=== PATIENT | female | born 1940 | race Caucasian/White ===

== ENCOUNTER 2018-09-03 13:10 | Inpatient (IN) ==
[2018-09-03] MEDS ORDERED: METOPROLOL TARTRATE 5 MG/5 ML VIAL IV ONE (13:15)
[2018-09-03] MEDS ORDERED: DILTIAZEM 50 MG/10 ML VIAL IV STA ×2 (13:22→14:57)
[2018-09-03] MEDS ORDERED: DILTIAZEM 25 MG/5 ML VIAL IV STA (13:23)
[2018-09-03] MEDS ORDERED: METOPROLOL TARTRATE 5 MG/5 ML VIAL IV STA (13:23)
[2018-09-03] MEDS: dilTIAZem Drip 125 MG/125 ML PREMIX IV SCH ×2 (14:03→22:41)
[2018-09-03 14:13] LABS: Basophils % 0.2 % (0.0-0.8); Eosinophils % 0.1 % (0.00-10.9); Hematocrit 31.7 VOL% (35.7-47.0); Hemoglobin 9.9 GM/DL (12.0-16.0); Immature Granulocytes % 0.3 %; Immature Granulocytes Absolute 0.03 #; Lymphocytes % 9.6 % (21.3-54.2); Mean Corpuscular HGB Conc 31.2 GM/DL (32-36); Mean Corpuscular Hemoglobin 27 PG (27-34); Mean Corpuscular Volume 87.6 FL (87-102); Mean Platelet Volume 9.4 FL (9.6-12.0); Monocytes # 1.1 10*3/uL (0.11-0.8); Monocytes % 10.8 % (1.7-12.7); Neutrophils # 8.1 10*3/uL (1.4-7.4); Platelet Count 360 T/CUMM (130-400); Red Blood Count 3.62 MC/CUMM (3.8-5.5); Red Cell Distribution Width 14.5 % (9.3-17.3); White Blood Count 10.3 T/CUMM (4-12)
[2018-09-03 14:29] LABS: Albumin 2.3 G/DL (3.4-5.0); Bilirubin,Total 0.5 MG/DL (0.2-1.0); Calcium 7.8 MG/DL (8.5-10.1); Osmolality,Calculated 268.4 MOS/KG (273-304); Potassium 2.8 MMOL/L (3.5-5.1); Thyroid Stimulating Hormone 0.385 uIU/ml (0.358-3.74); Total Protein 5.4 G/DL (6.4-8.3)
[2018-09-03 15:01] LABS: Apearance,Urine Slightly Hazy (Clear); Bacteria,Urine Occasional /HPF (Few); Bilirubin,Urine Negative (Negative); Blood, Urine Small mg/dL (Negative); Glucose,Urine (UA) Negative (Negative); Hyaline Casts,Urine 1 /LPF (0-3); Ketones,Urine Negative (Negative); Mucus,Urine Occasional /LPF (Occasional); Nitrite,Urine Negative (Negative); Protein,Urine 30 MG/DL; RBC,Urine 7 /HPF (0-4); Squamous Epithelial Cell,Urine Occasional /HPF (0-10); Urine Color Yellow (Yellow); Urine Specific Gravity 1.017 (1.001-1.035); Urine Urobilinogen < 2.0 EU/DL (0.2-1.0); WBC,Urine 3 /HPF (0-6)
[2018-09-03 15:18] LABS: Barbiturates Screen,Urine Negative (Negative); Benzodiazepines Screen,Urine Negative (Negative); Cannabinoid Screen,Urine Negative (Negative); Opiate Screen,Urine Negative (Negative); Phencyclidine Screen,Urine Negative (Negative)
[2018-09-03] MEDS ORDERED: ONDANSETRON 4 MG/2 ML VIAL IV PRN (16:39)
[2018-09-03] MEDS ORDERED: ENOXAPARIN 40 MG/0.4 ML SYRINGE SUBCUT SCH (17:00)
[2018-09-03] MEDS ORDERED: ACETAMINOPHEN 325 MG TABLET PO PRN (17:23)
[2018-09-03] MEDS: buPROPion SR 100 MG TABLET PO SCH (22:34)
[2018-09-03] MEDS: DILTIAZEM 60 MG TABLET PO SCH (22:35)
[2018-09-03] MEDS: rOPINIRole 1 MG TABLET PO SCH (22:35)
[2018-09-03] MEDS: APIXABAN 5 MG TABLET PO SCH (22:36)
[2018-09-03] MEDS: DONEPEZIL 5 MG TABLET PO SCH (22:36)
[2018-09-03] MEDS: traMADol 50 MG TABLET PO PRN (22:36)
[2018-09-03] MEDS: carBAMazepine 200 MG TABLET PO SCH (22:36)
[2018-09-03] MEDS: busPIRone 15 MG TABLET PO SCH (22:36)
[2018-09-03] MEDS: LORazepam 1 MG TABLET PO PRN (22:36)
[2018-09-03] MEDS: ACETAMINOPHEN 325 MG TABLET PO PRN (22:40)
[2018-09-04] MEDS: dilTIAZem Drip 125 MG/125 ML PREMIX IV SCH ×2 (05:11→12:32)
[2018-09-04 06:10] LABS: Calcium 8.3 MG/DL (8.5-10.1); Osmolality,Calculated 272.1 MOS/KG (273-304)
[2018-09-04 06:28] LABS: Potassium 2.5 MMOL/L (3.5-5.1)
[2018-09-04] MEDS: LEVOTHYROXINE 100 MCG TABLET PO SCH (06:41)
[2018-09-04] MEDS: POTASSIUM CHLORIDE 20 MEQ TABLET PO PRN ×5 (06:44→21:21)
[2018-09-04] MEDS: ACETAMINOPHEN 325 MG TABLET PO PRN ×3 (06:59→21:22)
[2018-09-04] MEDS: traMADol 50 MG TABLET PO PRN ×3 (07:00→21:18)
[2018-09-04] MEDS ORDERED: POTASSIUM CHLORIDE 20 MEQ TABLET PO ONE (07:19)
[2018-09-04 07:53] LABS: Basophils % 0.5 % (0.0-0.8); Eosinophils % 0.4 % (0.00-10.9); Hematocrit 27.6 VOL% (35.7-47.0); Hemoglobin 8.7 GM/DL (12.0-16.0); Immature Granulocytes % 0.4 %; Immature Granulocytes Absolute 0.03 #; Lymphocytes # 1.5 10*3/uL (1.4-4.0); Lymphocytes % 18.6 % (21.3-54.2); Mean Corpuscular HGB Conc 31.5 GM/DL (32-36); Mean Corpuscular Hemoglobin 28 PG (27-34); Mean Platelet Volume 9.8 FL (9.6-12.0); Monocytes # 0.8 10*3/uL (0.11-0.8); Monocytes % 10.4 % (1.7-12.7); Neutrophils # 5.5 10*3/uL (1.4-7.4); Neutrophils % 69.7 % (38.7-73.9); Platelet Count 315 T/CUMM (130-400); Red Cell Distribution Width 14.5 % (9.3-17.3); White Blood Count 7.9 T/CUMM (4-12)
[2018-09-04] MEDS: buPROPion SR 100 MG TABLET PO SCH ×2 (09:40→21:21)
[2018-09-04] MEDS: carBAMazepine 200 MG TABLET PO SCH ×3 (09:40→21:18)
[2018-09-04] MEDS: PANTOPRAZOLE 40 MG TABLET PO SCH (09:41)
[2018-09-04] MEDS: DILTIAZEM 60 MG TABLET PO SCH ×4 (09:41→21:20)
[2018-09-04] MEDS: APIXABAN 5 MG TABLET PO SCH ×2 (09:41→21:21)
[2018-09-04] MEDS: CETIRIZINE 10 MG TABLET PO SCH (09:41)
[2018-09-04] MEDS: busPIRone 15 MG TABLET PO SCH ×3 (09:43→21:21)
[2018-09-04] MEDS: ESTRADIOL 2 MG TABLET PO SCH (09:47)
[2018-09-04 15:42] LABS: Calcium 8.4 MG/DL (8.5-10.1); Potassium 3.2 MMOL/L (3.5-5.1)
[2018-09-04] MEDS: rOPINIRole 1 MG TABLET PO SCH (21:18)
[2018-09-04] MEDS: LORazepam 1 MG TABLET PO PRN (21:19)
[2018-09-04] MEDS: DONEPEZIL 5 MG TABLET PO SCH (21:22)
[2018-09-05] MEDS: POTASSIUM CHLORIDE 20 MEQ TABLET PO PRN (00:24)
[2018-09-05 05:07] LABS: Basophils % 0.7 % (0.0-0.8); Eosinophils # 0.1 10*3/uL (0.0-0.87); Eosinophils % 1.7 % (0.00-10.9); Hematocrit 25.8 VOL% (35.7-47.0); Hemoglobin 7.9 GM/DL (12.0-16.0); Immature Granulocytes % 0.3 %; Immature Granulocytes Absolute 0.02 #; Lymphocytes # 1.1 10*3/uL (1.4-4.0); Lymphocytes % 18.6 % (21.3-54.2); Mean Corpuscular HGB Conc 30.6 GM/DL (32-36); Mean Corpuscular Hemoglobin 28 PG (27-34); Mean Corpuscular Volume 90.2 FL (87-102); Mean Platelet Volume 9.3 FL (9.6-12.0); Monocytes # 0.4 10*3/uL (0.11-0.8); Monocytes % 6.6 % (1.7-12.7); Neutrophils # 4.4 10*3/uL (1.4-7.4); Neutrophils % 72.1 % (38.7-73.9); Platelet Count 280 T/CUMM (130-400); Red Blood Count 2.86 MC/CUMM (3.8-5.5); Red Cell Distribution Width 14.6 % (9.3-17.3); White Blood Count 6.1 T/CUMM (4-12)
[2018-09-05 05:33] LABS: Calcium 8.5 MG/DL (8.5-10.1); Osmolality,Calculated 277.8 MOS/KG (273-304); Potassium 4.9 MMOL/L (3.5-5.1)
[2018-09-05] MEDS: LEVOTHYROXINE 100 MCG TABLET PO SCH (06:42)
[2018-09-05] MEDS: DILTIAZEM 60 MG TABLET PO SCH (08:31)
[2018-09-05] MEDS: carBAMazepine 200 MG TABLET PO SCH ×3 (08:31→21:01)
[2018-09-05] MEDS: CETIRIZINE 10 MG TABLET PO SCH (08:32)
[2018-09-05] MEDS: buPROPion SR 100 MG TABLET PO SCH ×2 (08:32→21:00)
[2018-09-05] MEDS: APIXABAN 5 MG TABLET PO SCH ×2 (08:32→21:01)
[2018-09-05] MEDS: busPIRone 15 MG TABLET PO SCH ×3 (08:32→21:01)
[2018-09-05] MEDS: ESTRADIOL 2 MG TABLET PO SCH (08:33)
[2018-09-05] MEDS: PANTOPRAZOLE 40 MG TABLET PO SCH (08:33)
[2018-09-05] MEDS ORDERED: SODIUM CHLORIDE 0.9% 1,000 ML IV PRN ×2 (12:12→12:18)
[2018-09-05] MEDS: NYSTATIN 500,000 UNIT/5 ML UDCUP SWISH/SWAL SCH ×2 (16:28→21:00)
[2018-09-05 18:03] LABS: Hemoglobin 9.2 GM/DL (12.0-16.0)
[2018-09-05] MEDS ORDERED: clonazePAM 0.5 MG TABLET PO SCH (21:00)
[2018-09-05] MEDS: rOPINIRole 1 MG TABLET PO SCH (21:01)
[2018-09-05] MEDS: METOPROLOL TARTRATE 25 MG TABLET PO SCH (21:01)
[2018-09-05] MEDS: LORazepam 1 MG TABLET PO PRN (21:01)
[2018-09-05] MEDS: DILTIAZEM CD 120 MG CAPSULE PO SCH (21:02)
[2018-09-05] MEDS: DONEPEZIL 5 MG TABLET PO SCH (21:02)
[2018-09-06] MEDS: LEVOTHYROXINE 100 MCG TABLET PO SCH (06:39)
[2018-09-06] MEDS: carBAMazepine 200 MG TABLET PO SCH ×2 (09:40→16:33)
[2018-09-06] MEDS: APIXABAN 5 MG TABLET PO SCH (09:40)
[2018-09-06] MEDS: METOPROLOL TARTRATE 25 MG TABLET PO SCH (09:40)
[2018-09-06] MEDS: DILTIAZEM CD 120 MG CAPSULE PO SCH (09:40)
[2018-09-06] MEDS: ESTRADIOL 2 MG TABLET PO SCH (09:41)
[2018-09-06] MEDS: busPIRone 15 MG TABLET PO SCH ×2 (09:41→16:31)
[2018-09-06] MEDS: buPROPion SR 100 MG TABLET PO SCH (09:41)
[2018-09-06] MEDS: CETIRIZINE 10 MG TABLET PO SCH (09:41)
[2018-09-06] MEDS: PANTOPRAZOLE 40 MG TABLET PO SCH (09:41)
[2018-09-06] MEDS: NYSTATIN 500,000 UNIT/5 ML UDCUP SWISH/SWAL SCH ×3 (09:41→16:33)
[2018-09-06 12:44] VITALS: BP 117/58
== END 2018-09-06 16:10 | DRG 310 ==
LOC: N.EDINP 13:10 → N.ED 13:10 → SUATTDRO 17:06 → N.TELES 17:18
PROVIDERS: ADMIT Internal Medicine; ATTEND Internal Medicine

== ENCOUNTER 2020-11-26 11:13 | Inpatient (IN) ==
[2020-11-26 11:55] LABS: INR 2.6; PT Patient Result 26.8 SECS (9.8-11.9); Partial Thromboplastin Time 28.9 SECS (23.9-33.8)
[2020-11-26 11:56] LABS: Basophils % 0.1 % (0.0-0.8); Hematocrit 41.7 VOL% (35.7-47.0); Hemoglobin 13.1 GM/DL (12.0-16.0); Immature Granulocytes % 1.1 %; Immature Granulocytes Absolute 0.17 #; Lymphocytes # 0.7 10*3/uL (1.4-4.0); Lymphocytes % 4.7 % (21.3-54.2); Mean Corpuscular HGB Conc 31.4 GM/DL (32-36); Mean Corpuscular Volume 95.2 FL (87-102); Mean Platelet Volume 13.3 FL (9.6-12.0); Monocytes % 7.3 % (1.7-12.7); NRBC # 0.18 10*3/uL; Neutrophils % 86.8 % (38.7-73.9); Platelet Count 105 T/CUMM (130-400); Red Blood Count 4.38 MC/CUMM (3.8-5.5); Red Cell Distribution Width 15.6 % (9.3-17.3); White Blood Count 15.7 T/CUMM (4-12)
[2020-11-26] MEDS ORDERED: DILTIAZEM 50 MG/10 ML VIAL IV STA (11:58)
[2020-11-26] MEDS ORDERED: SODIUM CHLORIDE 0.9% 1,000 ML IV STA (12:03)
[2020-11-26 12:06] LABS: Albumin 3.3 G/DL (3.4-5.0); Bilirubin,Total 6.2 MG/DL (0.2-1.0); Calcium 8.7 MG/DL (8.5-10.1); Osmolality,Calculated 329.6 MOS/KG (273-304); Potassium 5.1 MMOL/L (3.5-5.1); Total Protein 5.6 G/DL (6.4-8.3)
[2020-11-26 12:08] LABS: Lymphocytes 4 % (20-55); Nucleated Red Blood Cells 4 (0-5); Segmented Neutrophils 90 % (50-85); Total Cells Counted 100
[2020-11-26 12:09] LABS: Hypochromasia Slight; Microcytosis 1+; Polychromasia Slight
[2020-11-26 12:10] LABS: Platelet Estimate Decreased
[2020-11-26] MEDS ORDERED: DILTIAZEM 100 MG VIAL.ADD IV ONE (12:40)
[2020-11-26 12:51] LABS: Bilirubin,Urine Negative (Negative); Blood, Urine Negative (Negative); Glucose,Urine (UA) Negative (Negative); Hyaline Casts,Urine 12 /LPF (0-3); Ketones,Urine Negative (Negative); Mucus,Urine Occasional /LPF (Occasional); Nitrite,Urine Negative (Negative); Protein,Urine 30 MG/DL; Squamous Epithelial Cell,Urine Occasional /HPF (0-10); Urine Appearance CLEAR (Clear); Urine Color Amber (Yellow); Urine Specific Gravity 1.017 (1.001-1.035); Urine Urobilinogen < 2.0 EU/DL (0.2-1.0); WBC,Urine 2 /HPF (0-6)
[2020-11-26] MEDS: DILTIAZEM INJ 100 MG in SODIUM CHLORIDE 0.9% 100 ML IV SCH (12:53)
[2020-11-26] MEDS ORDERED: ONDANSETRON 4 MG/2 ML VIAL ONE (13:02)
[2020-11-26] MEDS ORDERED: ONDANSETRON 4 MG/2 ML VIAL IV STA (13:07)
[2020-11-26] MEDS ORDERED: DEXTROSE 50% 25 GM/50 ML VIAL IV PRN (14:18)
[2020-11-26] MEDS ORDERED: ALBUTEROL 2.5 MG/3 ML NEB RESP TX PRN (14:18)
[2020-11-26] MEDS ORDERED: GLUCAGON 1 MG VIAL IM PRN (14:18)
[2020-11-26] MEDS ORDERED: ONDANSETRON 4 MG/2 ML VIAL IV PRN (14:18)
[2020-11-26] MEDS ORDERED: AZITHROMYCIN INJ 500 MG in SODIUM CHLORIDE 0.9% 250 ML IV SCH (14:30)
[2020-11-26] MEDS ORDERED: SODIUM CHLORIDE 0.9% 1,000 ML IV SCH (14:30)
[2020-11-26] MEDS ORDERED: SODIUM CHLORIDE 0.9% 1,000 ML IV ONE (14:39)
[2020-11-26] MEDS: SODIUM CHLORIDE 0.45% 1,000 ML IV SCH ×2 (14:58→18:52)
[2020-11-26 15:34] LABS: Barbiturates Screen,Urine Negative (Negative); Benzodiazepines Screen,Urine Negative (Negative); Cannabinoid Screen,Urine Negative (Negative); Opiate Screen,Urine Negative (Negative); Phencyclidine Screen,Urine Negative (Negative)
[2020-11-26] MEDS ORDERED: LACTATED RINGERS 500 ML IV ONE (17:09)
[2020-11-26] MEDS ORDERED: NOREPINEPHRINE 4 MG/4 ML VIAL IV ONE (17:16)
[2020-11-26 17:23] LABS: Hepatitis B Core IgM Quant 0.13 Index; Hepatitis B Surface Ag Quant < 0.10 Index; Hepatitis B Surface Ag Result Non-Reactive (NonReactive); Hepatitis C Virus Ab Quant 0.08 Index; Hepatitis C Virus Ab Result Non-Reactive (NonReactive)
[2020-11-26] MEDS ORDERED: MIDAZOLAM 100 MG in SODIUM CHLORIDE 0.9% 80 ML IV PRN (17:30)
[2020-11-26 17:50] LABS: ABG Base Excess -15.7 MMOL/L (-2.5-2.5); ABG HCO3 12.6 MMOL/L (20-26); ABG Oxygen Saturation 99.5 % (95-100); ABG TCO2 11.5 MMOL/L (23-27)
[2020-11-26 17:52] LABS: ABG PH 7.157 (7.35-7.45)
[2020-11-26] MEDS: NOREPINEPHRINE 8 MG in SODIUM CHLORIDE 0.9% 242 ML IV PRN (18:00)
[2020-11-26] MEDS ORDERED: ETOMIDATE 20 MG/10 ML VIAL IV ONE (18:04)
[2020-11-26] MEDS ORDERED: ROCURONIUM 100 MG/10 ML VIAL IV ONE (18:04)
[2020-11-26] MEDS ORDERED: SODIUM BICARBONATE 50 MEQ/50 ML VIAL IV ONE ×2 (18:09)
[2020-11-26] MEDS ORDERED: INFLUENZA VIRUS VACCINE 0.5 ML SYRINGE IM ONE (18:27)
[2020-11-26] MEDS: GABAPENTIN 100 MG CAPSULE PO SCH (18:33)
[2020-11-26] MEDS: MEMANTINE 5 MG TABLET PO SCH (18:33)
[2020-11-26] MEDS: LEVOFLOXACIN INJ 500 MG in PREMIX 1 EACH IV SCH (18:33)
[2020-11-26] MEDS ORDERED: LACTATED RINGERS 1,000 ML IV ONE (19:16)
[2020-11-26 19:59] LABS: Basophils % 0.1 % (0.0-0.8); Hemoglobin 11.8 GM/DL (12.0-16.0); Immature Granulocytes % 1.2 %; Immature Granulocytes Absolute 0.18 #; Lymphocytes # 0.6 10*3/uL (1.4-4.0); Lymphocytes % 4.2 % (21.3-54.2); Mean Corpuscular HGB Conc 30.3 GM/DL (32-36); Mean Corpuscular Volume 99.7 FL (87-102); Mean Platelet Volume 12.3 FL (9.6-12.0); Monocytes % 4.7 % (1.7-12.7); NRBC # 0.23 10*3/uL; Neutrophils % 89.8 % (38.7-73.9); Platelet Count 75 T/CUMM (130-400); Red Blood Count 3.91 MC/CUMM (3.8-5.5); Red Cell Distribution Width 15.4 % (9.3-17.3); White Blood Count 15.1 T/CUMM (4-12)
[2020-11-26 20:15] LABS: Bilirubin,Total 7.1 MG/DL (0.2-1.0); Calcium 7.5 MG/DL (8.5-10.1); Potassium 4.8 MMOL/L (3.5-5.1); Total Protein 5.5 G/DL (6.4-8.3)
[2020-11-26 20:23] LABS: Band Neutrophils 1 % (0-10); Lymphocytes 4 % (20-55); Nucleated Red Blood Cells 7 (0-5); Segmented Neutrophils 93 % (50-85); Total Cells Counted 100
[2020-11-26 20:24] LABS: Anisocytosis Slight; Burr Cells Few; Macrocytosis Slight; Platelet Estimate Decreased; Polychromasia 1+
[2020-11-26] MEDS: SODIUM BICARB INJ 100 MEQ in DEXTROSE 5% 1,000 ML IV SCH (20:39)
[2020-11-27] MEDS: DILTIAZEM INJ 100 MG in SODIUM CHLORIDE 0.9% 100 ML IV SCH (01:04)
[2020-11-27 04:25] LABS: Basophils % 0.1 % (0.0-0.8); Hematocrit 37.3 VOL% (35.7-47.0); Hemoglobin 11.6 GM/DL (12.0-16.0); Immature Granulocytes % 0.4 %; Immature Granulocytes Absolute 0.07 #; Lymphocytes # 0.8 10*3/uL (1.4-4.0); Lymphocytes % 4.8 % (21.3-54.2); Mean Corpuscular HGB Conc 31.1 GM/DL (32-36); Mean Corpuscular Volume 98.4 FL (87-102); Mean Platelet Volume 12.6 FL (9.6-12.0); NRBC # 0.22 10*3/uL; Neutrophils % 90.7 % (38.7-73.9); Red Blood Count 3.79 MC/CUMM (3.8-5.5); Red Cell Distribution Width 15.6 % (9.3-17.3)
[2020-11-27 04:32] LABS: Platelet Count 66 T/CUMM (130-400)
[2020-11-27 04:47] LABS: ABG Base Excess 1.9 MMOL/L (-2.5-2.5); ABG HCO3 26.1 MMOL/L (20-26); ABG PCO2 32.3 MM HG (35-48); ABG PH 7.492 (7.35-7.45)
[2020-11-27 04:49] LABS: Albumin 2.8 G/DL (3.4-5.0); Bilirubin,Total 7.4 MG/DL (0.2-1.0); Calcium 7.4 MG/DL (8.5-10.1); Osmolality,Calculated 327.8 MOS/KG (273-304); Potassium 4.2 MMOL/L (3.5-5.1)
[2020-11-27 04:55] LABS: Band Neutrophils 2 % (0-10); Lymphocytes 5 % (20-55); Nucleated Red Blood Cells 3 (0-5); Segmented Neutrophils 92 % (50-85); Total Cells Counted 100
[2020-11-27 04:56] LABS: Hypochromasia 1+; Microcytosis 1+; Ovalocytes Slight; Polychromasia Slight
[2020-11-27 04:57] LABS: Platelet Estimate Decreased
[2020-11-27] MEDS: SODIUM BICARB INJ 100 MEQ in DEXTROSE 5% 1,000 ML IV SCH ×3 (05:22→22:21)
[2020-11-27] MEDS: LEVOTHYROXINE 100 MCG TABLET PO SCH (08:07)
[2020-11-27] MEDS: MEMANTINE 5 MG TABLET PO SCH ×2 (08:07→17:15)
[2020-11-27] MEDS: GABAPENTIN 100 MG CAPSULE PO SCH ×2 (08:07→17:15)
[2020-11-27] MEDS: METOPROLOL TARTRATE 25 MG TABLET PER TUBE SCH ×2 (08:08→21:18)
[2020-11-27] MEDS ORDERED: LACTATED RINGERS 1,000 ML IV ONE (09:46)
[2020-11-28] MEDS: NOREPINEPHRINE 8 MG in SODIUM CHLORIDE 0.9% 242 ML IV PRN ×2 (03:35→20:26)
[2020-11-28 06:31] LABS: Basophils % 0.1 % (0.0-0.8); Hemoglobin 10.9 GM/DL (12.0-16.0); Immature Granulocytes % 0.5 %; Immature Granulocytes Absolute 0.07 #; Lymphocytes # 0.6 10*3/uL (1.4-4.0); Lymphocytes % 4.3 % (21.3-54.2); Mean Corpuscular Volume 91.9 FL (87-102); Mean Platelet Volume 12.5 FL (9.6-12.0); NRBC # 0.05 10*3/uL; Neutrophils % 91.1 % (38.7-73.9); Platelet Count 56 T/CUMM (130-400); Red Blood Count 3.59 MC/CUMM (3.8-5.5); Red Cell Distribution Width 15.3 % (9.3-17.3); White Blood Count 13.9 T/CUMM (4-12)
[2020-11-28 06:37] LABS: ABG Base Excess 8.5 MMOL/L (-2.5-2.5); ABG HCO3 32.3 MMOL/L (20-26); ABG Oxygen Saturation 99.2 % (95-100); ABG PCO2 31.9 MM HG (35-48); ABG PH 7.589 (7.35-7.45); ABG TCO2 27.1 MMOL/L (23-27)
[2020-11-28 06:38] LABS: INR 1.9
[2020-11-28 07:08] LABS: Hypochromasia 1+; Lymphocytes 2 % (20-55); Microcytosis 1+; Ovalocytes Slight; Platelet Estimate Decreased; Segmented Neutrophils 96 % (50-85); Total Cells Counted 100
[2020-11-28 07:17] LABS: Albumin 2.1 G/DL (3.4-5.0); Bilirubin,Total 7.9 MG/DL (0.2-1.0); Osmolality,Calculated 316.5 MOS/KG (273-304); Potassium 3.2 MMOL/L (3.5-5.1); Total Protein 4.2 G/DL (6.4-8.3)
[2020-11-28] MEDS ORDERED: HEPARIN/NACL 0.9% 2 UNITS/ML 500 ML IV ONE (07:22)
[2020-11-28] MEDS: SODIUM BICARB INJ 100 MEQ in DEXTROSE 5% 1,000 ML IV SCH ×3 (07:30→16:47)
[2020-11-28] MEDS ORDERED: POTASSIUM CHLORIDE 20 MEQ/15 ML UDCUP PER TUBE ONE (08:12)
[2020-11-28] MEDS: METOPROLOL TARTRATE 25 MG TABLET PER TUBE SCH (08:55)
[2020-11-28] MEDS: LEVOTHYROXINE 100 MCG TABLET PO SCH (08:55)
[2020-11-28] MEDS: MEMANTINE 5 MG TABLET PO SCH ×2 (08:55→18:30)
[2020-11-28] MEDS: GABAPENTIN 100 MG CAPSULE PO SCH ×2 (09:02→18:44)
[2020-11-28] MEDS ORDERED: DIGOXIN 0.5 MG/2 ML AMP IV ONE ×2 (10:00→10:10)
[2020-11-28] MEDS: HYDROCORTISONE 100 MG VIAL IV SCH ×2 (12:51→18:33)
[2020-11-28 14:21] LABS: Protein/Creatinine Ratio,Urine 1.1 RATIO
[2020-11-28] MEDS: LEVOFLOXACIN INJ 500 MG in PREMIX 1 EACH IV SCH (18:33)
[2020-11-29] MEDS: SODIUM BICARB INJ 100 MEQ in DEXTROSE 5% 1,000 ML IV SCH (00:29)
[2020-11-29] MEDS: HYDROCORTISONE 100 MG VIAL IV SCH ×3 (02:10→17:58)
[2020-11-29 04:37] LABS: ABG Base Excess 11.4 MMOL/L (-2.5-2.5); ABG HCO3 35.3 MMOL/L (20-26); ABG TCO2 28.8 MMOL/L (23-27)
[2020-11-29 04:38] LABS: ABG PH 7.645 (7.35-7.45)
[2020-11-29 04:55] LABS: Albumin 1.8 G/DL (3.4-5.0); Bilirubin,Total 9.7 MG/DL (0.2-1.0); Calcium 6.6 MG/DL (8.5-10.1); Osmolality,Calculated 315.4 MOS/KG (273-304); Potassium 3.6 MMOL/L (3.5-5.1); Total Protein 4.3 G/DL (6.4-8.3)
[2020-11-29 04:59] LABS: INR 1.5; PT Patient Result 16.1 SECS (9.8-11.9); Partial Thromboplastin Time 38.4 SECS (23.9-33.8)
[2020-11-29] MEDS ORDERED: SODIUM CHLORIDE 0.9% 1,000 ML IV SCH (05:00)
[2020-11-29] MEDS ORDERED: SODIUM CHLORIDE 0.45% 1,000 ML IV SCH (05:00)
[2020-11-29 05:01] LABS: Basophils % 0.1 % (0.0-0.8); Hematocrit 35.3 VOL% (35.7-47.0); Hemoglobin 11.5 GM/DL (12.0-16.0); Immature Granulocytes % 0.5 %; Immature Granulocytes Absolute 0.09 #; Lymphocytes # 0.3 10*3/uL (1.4-4.0); Lymphocytes % 1.7 % (21.3-54.2); Mean Corpuscular HGB Conc 32.6 GM/DL (32-36); Mean Corpuscular Volume 91.7 FL (87-102); Mean Platelet Volume 12.2 FL (9.6-12.0); Monocytes % 4.7 % (1.7-12.7); NRBC # 0.02 10*3/uL; Red Blood Count 3.85 MC/CUMM (3.8-5.5); Red Cell Distribution Width 15.6 % (9.3-17.3); White Blood Count 17.6 T/CUMM (4-12)
[2020-11-29 05:02] LABS: Platelet Count 55 T/CUMM (130-400)
[2020-11-29 05:26] LABS: Lymphocytes 1 % (20-55); Microcytosis 1+; Nucleated Red Blood Cells 1 (0-5); Promyelocytes 1 %; Segmented Neutrophils 96 % (50-85); Target Cells Slight; Total Cells Counted 100
[2020-11-29 05:27] LABS: Hypochromasia 2+; Platelet Estimate Decreased; Polychromasia Slight
[2020-11-29] MEDS ORDERED: LACTATED RINGERS 1,000 ML IV SCH (09:00)
[2020-11-29] MEDS ORDERED: POTASSIUM PHOSPHATE 30 MMOL in SODIUM CHLORIDE 0.9% 250 ML IV ONE (09:00)
[2020-11-29] MEDS ORDERED: AZITHROMYCIN INJ 500 MG in SODIUM CHLORIDE 0.9% 250 ML IV ONE (10:00)
[2020-11-29] MEDS: GABAPENTIN 100 MG CAPSULE PO SCH ×2 (10:17→17:58)
[2020-11-29] MEDS: LEVOTHYROXINE 100 MCG TABLET PO SCH (10:17)
[2020-11-29] MEDS: APIXABAN 5 MG TABLET PER TUBE SCH ×2 (10:17→20:10)
[2020-11-29] MEDS: MEMANTINE 5 MG TABLET PO SCH ×2 (10:17→17:58)
[2020-11-29] MEDS: DIGOXIN 0.5 MG/2 ML AMP IV SCH ×2 (10:18→15:48)
[2020-11-29] MEDS: cefTRIAXone 1,000 MG in SYRINGE 1 EACH IV SCH (10:20)
[2020-11-29] MEDS: SODIUM CHLORIDE 0.9% 1,000 ML IV SCH ×2 (18:00→23:58)
[2020-11-30] MEDS: HYDROCORTISONE 100 MG VIAL IV SCH ×3 (01:21→18:15)
[2020-11-30] MEDS: SODIUM CHLORIDE 0.9% 1,000 ML IV SCH ×4 (04:29→18:32)
[2020-11-30 04:32] LABS: ABG HCO3 30.8 MMOL/L (20-26); ABG Oxygen Saturation 99.6 % (95-100); ABG PCO2 40.3 MM HG (35-48); ABG PH 7.492 (7.35-7.45); ABG TCO2 27.2 MMOL/L (23-27)
[2020-11-30 04:40] LABS: Basophils % 0.1 % (0.0-0.8); Hemoglobin 11.9 GM/DL (12.0-16.0); Immature Granulocytes % 0.6 %; Immature Granulocytes Absolute 0.12 #; Lymphocytes # 0.3 10*3/uL (1.4-4.0); Lymphocytes % 1.4 % (21.3-54.2); Mean Corpuscular HGB Conc 33.1 GM/DL (32-36); Mean Corpuscular Volume 90.2 FL (87-102); Mean Platelet Volume 13.1 FL (9.6-12.0); Neutrophils % 91.9 % (38.7-73.9); Red Blood Count 3.99 MC/CUMM (3.8-5.5); Red Cell Distribution Width 15.6 % (9.3-17.3)
[2020-11-30 04:54] LABS: Albumin 1.6 G/DL (3.4-5.0); Bilirubin,Total 11.2 MG/DL (0.2-1.0); Calcium 6.8 MG/DL (8.5-10.1); Osmolality,Calculated 313.4 MOS/KG (273-304); Total Protein 4.2 G/DL (6.4-8.3)
[2020-11-30 04:57] LABS: Calcium 6.5 MG/DL (8.5-10.1); Osmolality,Calculated 316.1 MOS/KG (273-304); Potassium 4.1 MMOL/L (3.5-5.1)
[2020-11-30 05:19] LABS: Platelet Count 73 T/CUMM (130-400)
[2020-11-30 06:46] LABS: Band Neutrophils 1 % (0-10); Lymphocytes 2 % (20-55); Nucleated Red Blood Cells 1 (0-5); Segmented Neutrophils 95 % (50-85); Total Cells Counted 100
[2020-11-30 06:47] LABS: Hypochromasia 1+; Microcytosis 1+; Polychromasia Slight; Target Cells Slight
[2020-11-30 06:48] LABS: Platelet Estimate Decreased
[2020-11-30] MEDS ORDERED: MAGNESIUM SULF RIDER 4 GM in PREMIX 1 EACH IV PRN (06:56)
[2020-11-30] MEDS ORDERED: MAGNESIUM SULF RIDER 2 GM in PREMIX 1 EACH IV PRN (06:56)
[2020-11-30] MEDS: cefTRIAXone 1,000 MG in SYRINGE 1 EACH IV SCH (09:48)
[2020-11-30] MEDS: LEVOTHYROXINE 100 MCG TABLET PO SCH (09:49)
[2020-11-30] MEDS: FAMOTIDINE 20 MG/2 ML VIAL IV SCH (09:49)
[2020-11-30] MEDS: MEMANTINE 5 MG TABLET PO SCH ×2 (09:49→18:15)
[2020-11-30] MEDS: GABAPENTIN 100 MG CAPSULE PO SCH ×2 (09:50→18:15)
[2020-11-30] MEDS: APIXABAN 5 MG TABLET PER TUBE SCH ×2 (09:50→22:31)
[2020-11-30] MEDS: AZITHROMYCIN INJ 250 MG in SODIUM CHLORIDE 0.9% 250 ML IV SCH (10:02)
[2020-11-30 11:12] LABS: Bilirubin,Direct 9.03 MG/DL (0.0-0.20); Bilirubin,Indirect 1.6 MG/DL (0.0-1.0); Bilirubin,Total 10.6 MG/DL (0.2-1.0)
[2020-12-01] MEDS: HYDROCORTISONE 100 MG VIAL IV SCH ×3 (02:13→17:08)
[2020-12-01 04:39] LABS: Basophils % 0.1 % (0.0-0.8); Hemoglobin 11.1 GM/DL (12.0-16.0); Immature Granulocytes % 0.4 %; Immature Granulocytes Absolute 0.07 #; Lymphocytes # 0.2 10*3/uL (1.4-4.0); Lymphocytes % 1.5 % (21.3-54.2); Mean Corpuscular HGB Conc 32.6 GM/DL (32-36); Mean Corpuscular Volume 92.1 FL (87-102); Mean Platelet Volume 12.6 FL (9.6-12.0); Monocytes % 4.9 % (1.7-12.7); Neutrophils % 93.1 % (38.7-73.9); Red Blood Count 3.69 MC/CUMM (3.8-5.5); Red Cell Distribution Width 15.5 % (9.3-17.3); White Blood Count 15.8 T/CUMM (4-12)
[2020-12-01 04:40] LABS: Platelet Count 96 T/CUMM (130-400)
[2020-12-01 04:41] LABS: ABG Base Excess 4.8 MMOL/L (-2.5-2.5); ABG HCO3 28.8 MMOL/L (20-26); ABG Oxygen Saturation 99.6 % (95-100); ABG PCO2 39.1 MM HG (35-48); ABG PH 7.473 (7.35-7.45); ABG TCO2 25.6 MMOL/L (23-27)
[2020-12-01 04:48] LABS: Calcium 6.7 MG/DL (8.5-10.1); Osmolality,Calculated 316.3 MOS/KG (273-304); Potassium 3.8 MMOL/L (3.5-5.1)
[2020-12-01 05:28] LABS: Lymphocytes 2 % (20-55); Segmented Neutrophils 95 % (50-85); Total Cells Counted 100
[2020-12-01 05:29] LABS: Hypochromasia 3+; Platelet Estimate Decreased
[2020-12-01 05:30] LABS: Polychromasia Few; Target Cells Few
[2020-12-01] MEDS: SODIUM CHLORIDE 0.9% 1,000 ML IV SCH ×2 (05:51→07:39)
[2020-12-01 08:42] LABS: Albumin 1.6 G/DL (3.4-5.0); Bilirubin,Direct 9.91 MG/DL (0.0-0.20); Bilirubin,Indirect 2.4 MG/DL (0.0-1.0); Total Protein 4.4 G/DL (6.4-8.3)
[2020-12-01 08:51] LABS: Bilirubin,Total 12.3 MG/DL (0.2-1.0)
[2020-12-01] MEDS: LEVOTHYROXINE 100 MCG TABLET PO SCH (09:00)
[2020-12-01] MEDS: MEMANTINE 5 MG TABLET PO SCH ×2 (09:00→17:08)
[2020-12-01] MEDS: GABAPENTIN 100 MG CAPSULE PO SCH ×2 (09:01→17:08)
[2020-12-01] MEDS: FAMOTIDINE 20 MG/2 ML VIAL IV SCH (09:01)
[2020-12-01] MEDS: cefTRIAXone 1,000 MG in SYRINGE 1 EACH IV SCH (09:01)
[2020-12-01] MEDS: APIXABAN 5 MG TABLET PER TUBE SCH ×2 (09:01→21:41)
[2020-12-01] MEDS: AZITHROMYCIN INJ 250 MG in SODIUM CHLORIDE 0.9% 250 ML IV SCH (10:22)
[2020-12-01] MEDS ORDERED: MORPHINE 4 MG/1 ML VIAL IV PRN (10:26)
[2020-12-01] MEDS ORDERED: MORPHINE 4 MG/1 ML VIAL ONE (10:28)
[2020-12-02] MEDS: HYDROCORTISONE 100 MG VIAL IV SCH ×3 (03:21→17:50)
[2020-12-02 04:37] LABS: Basophils % 0.1 % (0.0-0.8); Hematocrit 33.4 VOL% (35.7-47.0); Immature Granulocytes % 0.4 %; Immature Granulocytes Absolute 0.07 #; Lymphocytes # 0.2 10*3/uL (1.4-4.0); Lymphocytes % 1.4 % (21.3-54.2); Mean Corpuscular HGB Conc 32.9 GM/DL (32-36); Mean Corpuscular Volume 90.3 FL (87-102); Mean Platelet Volume 12.5 FL (9.6-12.0); Monocytes % 4.4 % (1.7-12.7); Neutrophils % 93.7 % (38.7-73.9); Platelet Count 110 T/CUMM (130-400); Red Cell Distribution Width 15.5 % (9.3-17.3); White Blood Count 15.9 T/CUMM (4-12)
[2020-12-02 04:44] LABS: ABG Base Excess 3.9 MMOL/L (-2.5-2.5); ABG Oxygen Saturation 99.8 % (95-100); ABG PCO2 37.7 MM HG (35-48); ABG PH 7.473 (7.35-7.45); ABG TCO2 24.7 MMOL/L (23-27)
[2020-12-02 05:04] LABS: Calcium 7.3 MG/DL (8.5-10.1); Osmolality,Calculated 323.8 MOS/KG (273-304); Potassium 3.8 MMOL/L (3.5-5.1)
[2020-12-02 05:32] LABS: Albumin 1.5 G/DL (3.4-5.0); Bilirubin,Direct 10.29 MG/DL (0.0-0.20); Total Protein 4.3 G/DL (6.4-8.3)
[2020-12-02 05:35] LABS: Bilirubin,Indirect 1.9 MG/DL (0.0-1.0); Bilirubin,Total 12.2 MG/DL (0.2-1.0)
[2020-12-02 06:38] LABS: Hypochromasia 2+; Lymphocytes 2 % (20-55); Segmented Neutrophils 95 % (50-85); Total Cells Counted 100
[2020-12-02] MEDS: MEMANTINE 5 MG TABLET PO SCH ×2 (08:34→17:50)
[2020-12-02] MEDS: LEVOTHYROXINE 100 MCG TABLET PO SCH (08:34)
[2020-12-02] MEDS: cefTRIAXone 1,000 MG in SYRINGE 1 EACH IV SCH (08:35)
[2020-12-02] MEDS: GABAPENTIN 100 MG CAPSULE PO SCH ×2 (08:35→17:50)
[2020-12-02] MEDS: APIXABAN 5 MG TABLET PER TUBE SCH ×2 (08:35→21:36)
[2020-12-02] MEDS: FAMOTIDINE 20 MG/2 ML VIAL IV SCH (08:35)
[2020-12-02] MEDS: AZITHROMYCIN INJ 250 MG in SODIUM CHLORIDE 0.9% 250 ML IV SCH (09:06)
[2020-12-02] MEDS: ALBUMIN 25% 12.5 GM in PREMIX 1 EACH IV SCH ×2 (09:30→17:58)
[2020-12-02] MEDS ORDERED: HYDROCORTISONE 100 MG VIAL IV SCH (12:35)
[2020-12-03] MEDS: ALBUMIN 25% 12.5 GM in PREMIX 1 EACH IV SCH (02:09)
[2020-12-03] MEDS: HYDROCORTISONE 100 MG VIAL IV SCH ×3 (02:10→18:06)
[2020-12-03 05:19] LABS: ABG Base Excess 4.7 MMOL/L (-2.5-2.5); ABG HCO3 28.6 MMOL/L (20-26); ABG Oxygen Saturation 99.7 % (95-100); ABG PCO2 37.3 MM HG (35-48); ABG PH 7.487 (7.35-7.45); ABG TCO2 25.8 MMOL/L (23-27)
[2020-12-03 05:28] LABS: Basophils % 0.1 % (0.0-0.8); Hematocrit 27.4 VOL% (35.7-47.0); Hemoglobin 9.2 GM/DL (12.0-16.0); Immature Granulocytes % 1.5 %; Lymphocytes # 0.2 10*3/uL (1.4-4.0); Lymphocytes % 1.5 % (21.3-54.2); Mean Corpuscular HGB Conc 33.6 GM/DL (32-36); Mean Corpuscular Volume 88.1 FL (87-102); Mean Platelet Volume 12.3 FL (9.6-12.0); Monocytes % 3.3 % (1.7-12.7); Neutrophils % 93.6 % (38.7-73.9); Platelet Count 119 T/CUMM (130-400); Red Blood Count 3.11 MC/CUMM (3.8-5.5); Red Cell Distribution Width 15.4 % (9.3-17.3); White Blood Count 13.7 T/CUMM (4-12)
[2020-12-03 05:47] LABS: Bilirubin,Direct 10.31 MG/DL (0.0-0.20); Bilirubin,Indirect 2.6 MG/DL (0.0-1.0); Total Protein 4.3 G/DL (6.4-8.3)
[2020-12-03 05:55] LABS: Lymphocytes 2 % (20-55); Segmented Neutrophils 97 % (50-85); Total Cells Counted 100
[2020-12-03 05:56] LABS: Hypochromasia Slight; Microcytosis 1+; Target Cells Few
[2020-12-03 05:58] LABS: Ovalocytes Slight; Platelet Estimate Adequate
[2020-12-03 06:07] LABS: Bilirubin,Total 12.9 MG/DL (0.2-1.0)
[2020-12-03] MEDS: APIXABAN 5 MG TABLET PER TUBE SCH ×2 (08:24→21:53)
[2020-12-03] MEDS: LEVOTHYROXINE 100 MCG TABLET PO SCH (08:24)
[2020-12-03] MEDS: GABAPENTIN 100 MG CAPSULE PO SCH ×2 (08:24→16:34)
[2020-12-03] MEDS: MEMANTINE 5 MG TABLET PO SCH ×2 (08:24→16:34)
[2020-12-03] MEDS: FAMOTIDINE 20 MG/2 ML VIAL IV SCH (08:24)
[2020-12-03] MEDS: cefTRIAXone 1,000 MG in SYRINGE 1 EACH IV SCH (08:30)
[2020-12-03] MEDS ORDERED: DIGOXIN 0.5 MG/2 ML AMP IV SCH (09:00)
[2020-12-03] MEDS: AZITHROMYCIN INJ 250 MG in SODIUM CHLORIDE 0.9% 250 ML IV SCH (09:23)
[2020-12-03 09:53] LABS: Calcium 7.6 MG/DL (8.5-10.1); Potassium 3.6 MMOL/L (3.5-5.1)
[2020-12-03] MEDS ORDERED: carvediloL 3.125 MG TABLET PO SCH (21:00)
[2020-12-04] MEDS: HYDROCORTISONE 100 MG VIAL IV SCH ×3 (02:44→21:51)
[2020-12-04 05:18] LABS: ABG HCO3 28.9 MMOL/L (20-26); ABG Oxygen Saturation 99.4 % (95-100); ABG PCO2 37.9 MM HG (35-48); ABG PH 7.486 (7.35-7.45); ABG TCO2 25.7 MMOL/L (23-27)
[2020-12-04 05:27] LABS: Basophils % 0.1 % (0.0-0.8); Hematocrit 31.4 VOL% (35.7-47.0); Hemoglobin 10.3 GM/DL (12.0-16.0); Immature Granulocytes % 1.8 %; Lymphocytes # 0.3 10*3/uL (1.4-4.0); Lymphocytes % 1.5 % (21.3-54.2); Mean Corpuscular HGB Conc 32.8 GM/DL (32-36); Mean Corpuscular Volume 89.2 FL (87-102); Mean Platelet Volume 12.4 FL (9.6-12.0); Neutrophils % 93.6 % (38.7-73.9); Platelet Count 149 T/CUMM (130-400); Red Blood Count 3.52 MC/CUMM (3.8-5.5); Red Cell Distribution Width 15.9 % (9.3-17.3); White Blood Count 16.9 T/CUMM (4-12)
[2020-12-04 05:52] LABS: Hypochromasia Slight; Lymphocytes 2 % (20-55); Platelet Estimate Adequate; Segmented Neutrophils 93 % (50-85); Total Cells Counted 100
[2020-12-04 05:53] LABS: Microcytosis Slight
[2020-12-04 05:58] LABS: Albumin 1.8 G/DL (3.4-5.0); Bilirubin,Direct 9.29 MG/DL (0.0-0.20); Bilirubin,Indirect 2.3 MG/DL (0.0-1.0); Bilirubin,Total 11.6 MG/DL (0.2-1.0); Total Protein 4.5 G/DL (6.4-8.3)
[2020-12-04] MEDS ORDERED: hydrALAZINE 20 MG/1 ML VIAL IV PRN (08:14)
[2020-12-04] MEDS: FAMOTIDINE 20 MG/2 ML VIAL IV SCH (08:24)
[2020-12-04] MEDS: LEVOTHYROXINE 100 MCG TABLET PO SCH (08:25)
[2020-12-04] MEDS: APIXABAN 5 MG TABLET PER TUBE SCH ×2 (08:25→21:50)
[2020-12-04] MEDS: MEMANTINE 5 MG TABLET PO SCH ×2 (08:25→16:58)
[2020-12-04] MEDS: GABAPENTIN 100 MG CAPSULE PO SCH ×2 (08:25→16:58)
[2020-12-04] MEDS: carvediloL 6.25 MG TABLET PO SCH ×2 (08:32→21:50)
[2020-12-04] MEDS: cefTRIAXone 1,000 MG in SYRINGE 1 EACH IV SCH (08:43)
[2020-12-04] MEDS ORDERED: DIGOXIN 0.125 MG TABLET PO SCH (13:00)
[2020-12-05 04:07] LABS: ABG Base Excess 5.5 MMOL/L (-2.5-2.5); ABG HCO3 29.8 MMOL/L (20-26); ABG PCO2 42.4 MM HG (35-48); ABG PH 7.464 (7.35-7.45); ABG PO2 108.2 MM HG (80-95); ABG TCO2 31.1 MMOL/L (23-27)
[2020-12-05 04:08] LABS: Basophils % 0.2 % (0.0-0.8); Hematocrit 31.5 VOL% (35.7-47.0); Hemoglobin 10.1 GM/DL (12.0-16.0); Immature Granulocytes % 2.7 %; Immature Granulocytes Absolute 0.57 #; Lymphocytes # 0.3 10*3/uL (1.4-4.0); Lymphocytes % 1.6 % (21.3-54.2); Mean Corpuscular HGB Conc 32.1 GM/DL (32-36); Mean Platelet Volume 12.3 FL (9.6-12.0); Monocytes % 3.3 % (1.7-12.7); Neutrophils % 92.2 % (38.7-73.9); Platelet Count 154 T/CUMM (130-400); Red Cell Distribution Width 15.9 % (9.3-17.3); White Blood Count 21.3 T/CUMM (4-12)
[2020-12-05 04:26] LABS: Albumin 1.8 G/DL (3.4-5.0); Bilirubin,Total 8.5 MG/DL (0.2-1.0); Calcium 7.8 MG/DL (8.5-10.1); Osmolality,Calculated 331.4 MOS/KG (273-304); Potassium 3.6 MMOL/L (3.5-5.1); Total Protein 4.6 G/DL (6.4-8.3)
[2020-12-05 04:32] LABS: Hypochromasia 2+; Lymphocytes 1 % (20-55); Segmented Neutrophils 91 % (50-85); Total Cells Counted 100
[2020-12-05 04:33] LABS: Microcytosis 1+; Target Cells Few
[2020-12-05 04:35] LABS: Ovalocytes Few
[2020-12-05 04:36] LABS: Platelet Estimate Adequate
[2020-12-05] MEDS: MEMANTINE 5 MG TABLET PO SCH ×2 (08:03→17:09)
[2020-12-05] MEDS: carvediloL 12.5 MG TABLET PO SCH ×2 (08:03→22:32)
[2020-12-05] MEDS: APIXABAN 5 MG TABLET PER TUBE SCH ×2 (08:03→22:32)
[2020-12-05] MEDS: LEVOTHYROXINE 100 MCG TABLET PO SCH (08:03)
[2020-12-05] MEDS: GABAPENTIN 100 MG CAPSULE PO SCH ×2 (08:03→17:09)
[2020-12-05] MEDS: FAMOTIDINE 20 MG/2 ML VIAL IV SCH (08:04)
[2020-12-05] MEDS: HYDROCORTISONE 100 MG VIAL IV SCH (08:04)
[2020-12-05] MEDS: cefTRIAXone 1,000 MG in SYRINGE 1 EACH IV SCH (08:30)
[2020-12-06 05:56] LABS: Basophils % 0.1 % (0.0-0.8); Hematocrit 31.5 VOL% (35.7-47.0); Immature Granulocytes % 1.5 %; Lymphocytes # 0.5 10*3/uL (1.4-4.0); Lymphocytes % 2.4 % (21.3-54.2); Mean Corpuscular HGB Conc 31.7 GM/DL (32-36); Mean Corpuscular Volume 89.5 FL (87-102); Mean Platelet Volume 12.4 FL (9.6-12.0); Platelet Count 159 T/CUMM (130-400); Red Blood Count 3.52 MC/CUMM (3.8-5.5); Red Cell Distribution Width 16.5 % (9.3-17.3); White Blood Count 19.4 T/CUMM (4-12)
[2020-12-06 06:22] LABS: Albumin 1.8 G/DL (3.4-5.0); Bilirubin,Total 5.5 MG/DL (0.2-1.0); Calcium 8.2 MG/DL (8.5-10.1); Osmolality,Calculated 333.1 MOS/KG (273-304); Potassium 3.4 MMOL/L (3.5-5.1); Total Protein 4.8 G/DL (6.4-8.9)
[2020-12-06 06:54] LABS: Band Neutrophils 1 % (0-10); Lymphocytes 4 % (20-55); Macrocytosis 1+; Metamyelocytes 1 %; Myelocytes 1 %; Nucleated Red Blood Cells 1 (0-5); Platelet Estimate Normal; Segmented Neutrophils 92 % (50-85); Target Cells Few; Total Cells Counted 100
[2020-12-06 06:55] LABS: Anisocytosis 2+; Ovalocytes Few
[2020-12-06] MEDS: GABAPENTIN 100 MG CAPSULE PO SCH ×2 (08:45→17:39)
[2020-12-06] MEDS: MEMANTINE 5 MG TABLET PO SCH ×2 (08:45→17:38)
[2020-12-06] MEDS: LEVOTHYROXINE 100 MCG TABLET PO SCH (08:45)
[2020-12-06] MEDS: carvediloL 12.5 MG TABLET PO SCH (08:46)
[2020-12-06] MEDS: APIXABAN 5 MG TABLET PER TUBE SCH (08:46)
[2020-12-06] MEDS: FAMOTIDINE 20 MG/2 ML VIAL IV SCH (08:46)
[2020-12-06] MEDS: cefTRIAXone 1,000 MG in SYRINGE 1 EACH IV SCH (08:48)
[2020-12-06] MEDS ORDERED: POTASSIUM CHLORIDE 20 MEQ/15 ML UDCUP PO ONE (09:00)
[2020-12-06] MEDS ORDERED: ALBUTEROL 2.5 MG/3 ML NEB RESP TX ONE (11:58)
[2020-12-06] MEDS: ALBUTEROL 2.5 MG/3 ML NEB RESP TX SCH ×2 (12:30→19:44)
[2020-12-07] MEDS: carvediloL 12.5 MG TABLET PO SCH ×3 (00:01→21:49)
[2020-12-07] MEDS: APIXABAN 5 MG TABLET PER TUBE SCH (00:02)
[2020-12-07] MEDS: ALBUTEROL 2.5 MG/3 ML NEB RESP TX SCH ×4 (01:10→19:23)
[2020-12-07 05:38] LABS: Basophils % 0.1 % (0.0-0.8); Eosinophils % 0.1 % (0.00-10.9); Hematocrit 29.3 VOL% (35.7-47.0); Hemoglobin 9.2 GM/DL (12.0-16.0); Immature Granulocytes % 2.5 %; Immature Granulocytes Absolute 0.49 #; Lymphocytes # 0.5 10*3/uL (1.4-4.0); Lymphocytes % 2.5 % (21.3-54.2); Mean Corpuscular HGB Conc 31.4 GM/DL (32-36); Mean Corpuscular Volume 90.7 FL (87-102); Mean Platelet Volume 12.5 FL (9.6-12.0); Neutrophils % 91.8 % (38.7-73.9); Platelet Count 149 T/CUMM (130-400); Red Blood Count 3.23 MC/CUMM (3.8-5.5); Red Cell Distribution Width 16.5 % (9.3-17.3); White Blood Count 19.3 T/CUMM (4-12)
[2020-12-07 05:51] LABS: Allen Test Positive
[2020-12-07 05:52] LABS: ABG Base Excess 6.1 MMOL/L (-2.5-2.5); ABG Oxygen Saturation 98.9 % (95-100); ABG PCO2 43.8 MM HG (35-48); ABG PH 7.454 (7.35-7.45)
[2020-12-07 06:10] LABS: Albumin 1.7 G/DL (3.4-5.0); Bilirubin,Total 4.8 MG/DL (0.2-1.0); Calcium 8.1 MG/DL (8.5-10.1); Potassium 3.4 MMOL/L (3.5-5.1)
[2020-12-07 06:19] LABS: Hypochromasia 2+; Lymphocytes 2 % (20-55); Segmented Neutrophils 95 % (50-85); Target Cells Few; Total Cells Counted 100
[2020-12-07 06:20] LABS: Anisocytosis 1+; Microcytosis 1+; Ovalocytes Slight; Platelet Estimate Adequate
[2020-12-07] MEDS: LEVOTHYROXINE 100 MCG TABLET PO SCH (12:35)
[2020-12-07] MEDS ORDERED: LACTULOSE 20 GM/30 ML UDCUP PO PRN (12:58)
[2020-12-07] MEDS ORDERED: POTASSIUM CHLORIDE 20 MEQ/15 ML UDCUP NG ONE (13:00)
[2020-12-07] MEDS: DEXTROSE 5% 1,000 ML IV SCH (19:01)
[2020-12-07] MEDS: FAMOTIDINE 20 MG/2 ML VIAL IV SCH (21:50)
[2020-12-07] MEDS: ENOXAPARIN 80 MG/0.8 ML SYRINGE SUBCUT SCH (21:50)
[2020-12-07] MEDS: LACTULOSE 20 GM/30 ML UDCUP PO SCH (21:52)
[2020-12-08] MEDS: ALBUTEROL 2.5 MG/3 ML NEB RESP TX SCH ×4 (00:38→19:18)
[2020-12-08] MEDS: LACTULOSE 20 GM/30 ML UDCUP PO SCH ×2 (05:16→15:56)
[2020-12-08 06:13] LABS: Basophils % 0.1 % (0.0-0.8); Hematocrit 30.9 VOL% (35.7-47.0); Hemoglobin 9.6 GM/DL (12.0-16.0); Immature Granulocytes % 1.6 %; Immature Granulocytes Absolute 0.35 #; Lymphocytes # 0.5 10*3/uL (1.4-4.0); Lymphocytes % 2.5 % (21.3-54.2); Mean Corpuscular HGB Conc 31.1 GM/DL (32-36); Mean Corpuscular Volume 93.9 FL (87-102); Mean Platelet Volume 12.5 FL (9.6-12.0); Monocytes % 3.2 % (1.7-12.7); Neutrophils % 92.6 % (38.7-73.9); Platelet Count 149 T/CUMM (130-400); Red Blood Count 3.29 MC/CUMM (3.8-5.5); Red Cell Distribution Width 16.5 % (9.3-17.3); White Blood Count 21.3 T/CUMM (4-12)
[2020-12-08 06:27] LABS: Calcium 8.5 MG/DL (8.5-10.1); Potassium 3.5 MMOL/L (3.5-5.1)
[2020-12-08 06:29] LABS: Albumin 1.7 G/DL (3.4-5.0); Bilirubin,Direct 3.68 MG/DL (0.0-0.20); Bilirubin,Indirect 1.6 MG/DL (0.0-1.0); Bilirubin,Total 5.3 MG/DL (0.2-1.0); Calcium 8.6 MG/DL (8.5-10.1); Calcium 8.7 MG/DL (8.5-10.1); Osmolality,Calculated 340.9 MOS/KG (273-304); Potassium 3.5 MMOL/L (3.5-5.1)
[2020-12-08 06:36] LABS: Hypochromasia 1+; Lymphocytes 5 % (20-55); Microcytosis 1+; Platelet Estimate Adequate; Segmented Neutrophils 93 % (50-85); Total Cells Counted 100
[2020-12-08] MEDS: carvediloL 12.5 MG TABLET PO SCH ×2 (09:01→21:48)
[2020-12-08] MEDS: LEVOTHYROXINE 100 MCG TABLET PO SCH (09:01)
[2020-12-08] MEDS: CEFEPIME 1,000 MG in SODIUM CHLORIDE 0.9% 100 ML IV SCH ×2 (09:07→21:47)
[2020-12-08] MEDS: DEXTROSE 5% 1,000 ML IV SCH (09:14)
[2020-12-08] MEDS: LINEZOLID INJ 600 MG in PREMIX 1 EACH IV SCH ×2 (10:43→22:49)
[2020-12-08] MEDS: ENOXAPARIN 80 MG/0.8 ML SYRINGE SUBCUT SCH (21:47)
[2020-12-08] MEDS: FAMOTIDINE 20 MG/2 ML VIAL IV SCH (21:48)
[2020-12-09] MEDS: ALBUTEROL 2.5 MG/3 ML NEB RESP TX SCH ×4 (00:22→19:16)
[2020-12-09 06:53] LABS: Basophils % 0.1 % (0.0-0.8); Eosinophils % 0.2 % (0.00-10.9); Hematocrit 25.8 VOL% (35.7-47.0); Hemoglobin 7.9 GM/DL (12.0-16.0); Immature Granulocytes % 1.7 %; Immature Granulocytes Absolute 0.33 #; Lymphocytes # 0.4 10*3/uL (1.4-4.0); Lymphocytes % 2.3 % (21.3-54.2); Mean Corpuscular HGB Conc 30.6 GM/DL (32-36); Mean Corpuscular Volume 94.2 FL (87-102); Mean Platelet Volume 13.2 FL (9.6-12.0); Monocytes % 2.5 % (1.7-12.7); Neutrophils % 93.2 % (38.7-73.9); Red Blood Count 2.74 MC/CUMM (3.8-5.5)
[2020-12-09] MEDS: DEXTROSE 5% 1,000 ML IV SCH (06:54)
[2020-12-09 06:56] LABS: Platelet Count 106 T/CUMM (130-400)
[2020-12-09 07:14] LABS: Band Neutrophils 1 % (0-10); Eosinophils 1 % (0-10); Hypochromasia 2+; Lymphocytes 4 % (20-55); Microcytosis 1+; Ovalocytes Slight; Platelet Estimate Decreased; Segmented Neutrophils 92 % (50-85); Total Cells Counted 100
[2020-12-09 07:20] LABS: Albumin 1.5 G/DL (3.4-5.0); Bilirubin,Direct 3.02 MG/DL (0.0-0.20); Bilirubin,Indirect 1.1 MG/DL (0.0-1.0); Bilirubin,Total 4.1 MG/DL (0.2-1.0); Calcium 7.7 MG/DL (8.5-10.1); Osmolality,Calculated 327.6 MOS/KG (273-304); Potassium 3.2 MMOL/L (3.5-5.1); Total Protein 4.4 G/DL (5.0-7.5)
[2020-12-09] MEDS: carvediloL 12.5 MG TABLET PO SCH ×2 (08:52→21:42)
[2020-12-09] MEDS: CEFEPIME 1,000 MG in SODIUM CHLORIDE 0.9% 100 ML IV SCH ×2 (08:52→21:42)
[2020-12-09] MEDS: LEVOTHYROXINE 100 MCG TABLET PO SCH (08:52)
[2020-12-09] MEDS: LACTULOSE 20 GM/30 ML UDCUP PO SCH ×2 (08:52→21:42)
[2020-12-09] MEDS: LINEZOLID INJ 600 MG in PREMIX 1 EACH IV SCH ×2 (09:57→22:20)
[2020-12-09] MEDS: ENOXAPARIN 80 MG/0.8 ML SYRINGE SUBCUT SCH (21:42)
[2020-12-09] MEDS: FAMOTIDINE 20 MG/2 ML VIAL IV SCH (21:43)
[2020-12-10] MEDS: ALBUTEROL 2.5 MG/3 ML NEB RESP TX SCH ×4 (00:12→19:12)
[2020-12-10] MEDS: DEXTROSE 5% 1,000 ML IV SCH ×2 (00:58→21:35)
[2020-12-10 06:12] LABS: Basophils % 0.2 % (0.0-0.8); Eosinophils # 0.1 10*3/uL (0.0-0.87); Eosinophils % 0.3 % (0.00-10.9); Hematocrit 24.3 VOL% (35.7-47.0); Hemoglobin 7.7 GM/DL (12.0-16.0); Immature Granulocytes % 1.1 %; Immature Granulocytes Absolute 0.21 #; Lymphocytes # 0.4 10*3/uL (1.4-4.0); Mean Corpuscular HGB Conc 31.7 GM/DL (32-36); Mean Corpuscular Volume 91.7 FL (87-102); Mean Platelet Volume 13.4 FL (9.6-12.0); Monocytes % 3.1 % (1.7-12.7); Neutrophils % 93.3 % (38.7-73.9); Red Blood Count 2.65 MC/CUMM (3.8-5.5); Red Cell Distribution Width 16.8 % (9.3-17.3); White Blood Count 18.6 T/CUMM (4-12)
[2020-12-10 06:22] LABS: Platelet Count 94 T/CUMM (130-400)
[2020-12-10 06:33] LABS: Albumin 1.5 G/DL (3.4-5.0); Bilirubin,Direct 3.16 MG/DL (0.0-0.20); Bilirubin,Indirect 0.5 MG/DL (0.0-1.0); Bilirubin,Total 3.7 MG/DL (0.2-1.0); Calcium 7.6 MG/DL (8.5-10.1); Potassium 3.1 MMOL/L (3.5-5.1); Total Protein 4.5 G/DL (5.0-7.5)
[2020-12-10 06:44] LABS: Band Neutrophils 1 % (0-10); Eosinophils 1 % (0-10); Hypochromasia 1+; Lymphocytes 4 % (20-55); Metamyelocytes 1 %; Microcytosis 1+; Segmented Neutrophils 92 % (50-85); Total Cells Counted 100
[2020-12-10 06:45] LABS: Ovalocytes Slight; Platelet Estimate Decreased; Target Cells Slight
[2020-12-10] MEDS: CEFEPIME 1,000 MG in SODIUM CHLORIDE 0.9% 100 ML IV SCH ×2 (09:35→20:37)
[2020-12-10] MEDS: carvediloL 12.5 MG TABLET PO SCH ×2 (09:36→20:37)
[2020-12-10] MEDS: LACTULOSE 20 GM/30 ML UDCUP PO SCH ×2 (09:36→20:38)
[2020-12-10] MEDS: LEVOTHYROXINE 100 MCG TABLET PO SCH (09:36)
[2020-12-10] MEDS ORDERED: TUBERCULIN SKIN TEST 0.1 ML SYRINGE INTRADERM ONE (09:55)
[2020-12-10] MEDS ORDERED: POTASSIUM CHLORIDE 20 MEQ TABLET PO ONE (12:00)
[2020-12-10] MEDS ORDERED: POTASSIUM CHLORIDE 20 MEQ/15 ML UDCUP PO ONE (12:30)
[2020-12-10] MEDS: LINEZOLID INJ 600 MG in PREMIX 1 EACH IV SCH ×2 (13:14→21:57)
[2020-12-10] MEDS: FAMOTIDINE 20 MG/2 ML VIAL IV SCH (20:36)
[2020-12-10] MEDS: ENOXAPARIN 80 MG/0.8 ML SYRINGE SUBCUT SCH (20:37)
[2020-12-11] MEDS: ALBUTEROL 2.5 MG/3 ML NEB RESP TX SCH ×4 (00:24→19:29)
[2020-12-11] MEDS: DEXTROSE 5% 1,000 ML IV SCH ×2 (01:52→21:44)
[2020-12-11] MEDS: CEFEPIME 1,000 MG in SODIUM CHLORIDE 0.9% 100 ML IV SCH ×2 (09:18→21:48)
[2020-12-11] MEDS: carvediloL 12.5 MG TABLET PO SCH ×2 (10:14→22:06)
[2020-12-11] MEDS: LEVOTHYROXINE 100 MCG TABLET PO SCH (10:14)
[2020-12-11] MEDS: LACTULOSE 20 GM/30 ML UDCUP PO SCH ×2 (10:14→22:06)
[2020-12-11] MEDS: LINEZOLID INJ 600 MG in PREMIX 1 EACH IV SCH (10:35)
[2020-12-11] MEDS: FAMOTIDINE 20 MG/2 ML VIAL IV SCH (21:49)
[2020-12-11] MEDS: ENOXAPARIN 80 MG/0.8 ML SYRINGE SUBCUT SCH (21:51)
[2020-12-12] MEDS: ALBUTEROL 2.5 MG/3 ML NEB RESP TX SCH ×2 (00:28→07:42)
[2020-12-12] MEDS: LINEZOLID INJ 600 MG in PREMIX 1 EACH IV SCH (03:50)
[2020-12-12] MEDS: LEVOTHYROXINE 100 MCG TABLET PO SCH (09:35)
[2020-12-12] MEDS: carvediloL 12.5 MG TABLET PO SCH (09:35)
[2020-12-12] MEDS: LACTULOSE 20 GM/30 ML UDCUP PO SCH (09:35)
[2020-12-12] MEDS: CEFEPIME 1,000 MG in SODIUM CHLORIDE 0.9% 100 ML IV SCH (09:41)
[2020-12-12] MEDS ORDERED: MORPHINE 4 MG/1 ML VIAL IV PRN (12:36)
[2020-12-12] MEDS: DEXTROSE 5% 1,000 ML IV SCH (14:00)
[2020-12-12 15:46] VITALS: BP 106/49
[2020-12-12] MEDS ORDERED: SODIUM BICARBONATE 50 MEQ/50 ML SYRINGE IV ONE (15:57)
[2020-12-12] MEDS ORDERED: EPINEPHrine 1 MG/10 ML SYRINGE IV ONE (15:57)
[2020-12-12] MEDS ORDERED: ENOXAPARIN 30 MG/0.3 ML SYRINGE SUBCUT SCH (21:00)
== END 2020-12-12 15:58 | disposition hospice, inpatient (51) | DRG 870 ==
LOC: EDUNIT# → EDBD → N.ED 11:13 → N.TELES 15:52 → SUATTDRO 15:52 → N.ICU 17:10 → N.3E 12-05 18:08
PROVIDERS: ADMIT Internal Medicine; ATTEND Internal Medicine